=== PATIENT | female | born 2000 | race African-American/Black ===

== ENCOUNTER 2023-05-24 17:26 | Emergency (ER) | payer OTHER ==
[2023-05-24] MEDS ORDERED: Ibuprofen 200 MG TAB ONE (17:58)
[2023-05-24 19:04] LABS: SARS-CoV-2 NAA Rapid Test Not Detected (NotDetected)
== END 2023-05-24 19:28 | disposition home or self-care (01) ==
LOC: CSHERS 17:26
DX: J06.9 Acute upper respiratory infection, unspecified (principal); F17.200 Nicotine dependence, unspecified, uncomplicated; Z20.822 Contact with and (suspected) exposure to COVID-19
CPT/HCPCS: 99283